=== PATIENT | female | born 1925 | race African-American/Black ===

== ENCOUNTER 2016-10-10 09:30 | Emergency (ER) | payer OTHER ==
[~2016-10-10] VITALS: Ht 175.3 cm; Wt 140.0 kg
[2016-10-10 09:54] LABS: BASOPHILS % 0.6 % (0.0-2.0); EOSINOPHILS % 2.9 % (0.0-5.0); HEMATOCRIT. 41.1 % (36.0-48.0); HEMOGLOBIN. 13.3 g/dL (12.0-16.0); LYMPHOCYTES % 24.1 % (20.0-50.0); MEAN CORPUSCULAR HEMOGLOBIN 27.7 pg (28.0-32.0); MEAN CORPUSCULAR VOLUME 85.4 fL (81.0-99.0); NEUTROPHILS % 64.4 % (40.0-76.0); RED CELL DISTRIBUTION WIDTH 15.2 % (11.6-14.6)
[2016-10-10 10:07] LABS: CARBON DIOXIDE 26 mEq/L (21-32); CHLORIDE 106 mEq/L (98-107)
[2016-10-10 10:11] LABS: TROPONIN I < 0.02 ng/mL (0.00-0.04)
[2016-10-10 10:21] LABS: PROTHROMBIN TIME 10.6 sec
[2016-10-10] MEDS ORDERED: ONDANSETRON HCL 4MG/2ML VIAL IV ONE (11:00)
[2016-10-10 12:23] VITALS: BP 111/58
== END 2016-10-10 12:14 | disposition home or self-care (01) ==
LOC: ER 10:42
DX: H81.10 Benign paroxysmal vertigo, unspecified ear (principal); I10 Essential (primary) hypertension; M19.90 Unspecified osteoarthritis, unspecified site
CPT/HCPCS: 36415; 70450; 71010; 80053; 83880; 84484; 85025; 85610; 93005; 99285